=== PATIENT | female | born 1960 | race Caucasian/White ===

== ENCOUNTER → 2023-09-27 14:35 | Outpatient (REF) | payer OTHER, SELFPAY | LOC: WDC 14:35 | PROVIDERS: ATTENDING PHYSICIAN Obstetrics & Gynecology; FAMILY PHYSICIAN Nurse Practitioner Adult Health | DX: Z12.31 Encounter for screening mammogram for malignant neoplasm of breast (principal) | CPT/HCPCS: 77063; 77067 ==

== ENCOUNTER → 2023-10-02 10:45 | Outpatient (REF) | payer OTHER, SELFPAY | LOC: HWRAD 10:45 | PROVIDERS: ATTENDING PHYSICIAN Surgery; FAMILY PHYSICIAN Nurse Practitioner Adult Health | DX: R07.82 Intercostal pain (principal) | CPT/HCPCS: 71250 ==

== ENCOUNTER → 2023-11-09 10:50 | Outpatient (REF) | payer OTHER, SELFPAY ==
[2023-11-09 11:32] LABS: Urine Albumin Negative (Neg - Trace); Urine Bilirubin Negative (Negative); Urine Character Clear (Clear); Urine Color Yellow; Urine Glucose Negative (Negative); Urine Ketone Negative (Negative); Urine Leukocyte Trace (Negative); Urine Nitrite Negative (Negative); Urine Occult Blood Negative (Negative); Urine Specific Gravity 1.005 (<1.030); Urine Urobilinogen Negative (Neg - 1+); Urine pH 6.5 (5.0-9.0)
[2023-11-09 11:37] LABS: % Basophils 0.3 % (0-2); % Eosinophils 0.3 % (0-6); % Immature Granulocytes 0.4 % (0-0.5); % Lymphocytes 6.5 % (20.5-51.1); % Monocytes 1.9 % (1.7-9.3); % Neutrophils 90.6 % (42.2-75.2); Absolute Lymphocytes 0.5 10^3/uL (1.2-3.4); Absolute Monocytes 0.1 10^3/uL (0.1-0.6); Absolute Neutrophils 6.6 10^3/uL (1.4-6.5); Hematocrit 36.9 % (37.0-47.0); Hemoglobin 12.3 g/dL (12.0-16.0); Mean Corp Hgb Conc. 33.3 g/dL (33.0-37.0); Mean Corpuscular Hgb 29.8 pg (27.0-31.0); Mean Corpuscular Volume 89.3 fL (81.0-99.0); Mean Platelet Volume 10.6 fL (7.4-10.4); Nucleated Red Blood Cells % 0 %; Platelet Count 276 10^3/uL (130-400); Red Blood Cell Count 4.13 10^6/uL (4.20-5.40); Red Cell Dist. Width 14.3 % (11.5-14.5); White Blood Cell Count 7.3 10^3/uL (4.8-10.8)
[2023-11-09 11:41] LABS: INR 0.91; PT 12.1 Sec (11.4-14.6)
[2023-11-09 12:12] LABS: Protein/creatinine Ratio 0.3; Urine Protein 9 mg/dl
[2023-11-09 12:14] LABS: Urine Amorphous Seen; Urine Red Blood Cell 0-2 /HPF (0-2); Urine Squamous Cell 0-2 /LPF (Few)
[2023-11-09 12:31] LABS: ALT (SGPT) 28 U/L (0-35); AST (SGOT) 39 U/L (14-36); Albumin 4.1 g/dl (3.5-5.0); Alkaline Phosphatase 138 U/L (38-126); Blood Urea Nitrogen 14 mg/dl (7-17); Calcium 9.7 mg/dl (8.4-10.2); Carbon Dioxide 25 mmol/L (22-30); Chloride 98 mmol/L (98-107); Glucose 92 mg/dl (70-99); Potassium 4.6 mmol/L (3.5-5.1); Sodium 132 mmol/L (135-145); Total Bilirubin 0.5 mg/dl (0.2-1.3); Total Protein 7.3 g/dl (6.3-8.2); eGFR > 60.00
[2023-11-09 12:33] LABS: C-Reactive Protein < 5.00 mg/L (0.0-10.00)
[2023-11-09 12:38] LABS: Complement C3 56 mg/dl (88-165)
[2023-11-12 02:32] LABS: ds-DNA Ab, IgG Reflex To Titer >300 IU (0-24)
== END ==
LOC: REG 10:50
PROVIDERS: ATTENDING PHYSICIAN Registered Nurse; FAMILY PHYSICIAN Nurse Practitioner Adult Health; OTHER PHYSICIAN Internal Medicine Rheumatology
DX: R04.0 Epistaxis (principal); D64.9 Anemia, unspecified; D72.819 Decreased white blood cell count, unspecified; E55.9 Vitamin D deficiency, unspecified; M19.049 Primary osteoarthritis, unspecified hand; M19.071 Primary osteoarthritis, right ankle and foot; M32.9 Systemic lupus erythematosus, unspecified; M51.37 Other intervertebral disc degeneration, lumbosacral region; M76.61 Achilles tendinitis, right leg; M85.80 Other specified disorders of bone density and structure, unspecified site; Z79.899 Other long term (current) drug therapy
CPT/HCPCS: 36415; 80053; 81003; 81015; 82570; 84156; 85025; 85610; 86140; 86160; 86225

== ENCOUNTER → 2023-11-25 09:02 | Outpatient (REF) | payer OTHER, SELFPAY | LOC: RCS 09:02 | PROVIDERS: ATTENDING PHYSICIAN Registered Nurse; REFERRING PHYSICIAN Internal Medicine Rheumatology | DX: I34.0 Nonrheumatic mitral (valve) insufficiency (principal) | CPT/HCPCS: 93306 ==

== ENCOUNTER → 2024-01-09 14:14 | Outpatient (REF) | payer OTHER, SELFPAY | LOC: RAD 14:14 | PROVIDERS: ATTENDING PHYSICIAN Student in an Organized Health Care Education/Training Program; FAMILY PHYSICIAN Nurse Practitioner Adult Health | DX: M79.671 Pain in right foot (principal) | CPT/HCPCS: 73630 ==

== ENCOUNTER → 2024-02-06 13:06 | Outpatient (REF) | payer MEDICARE, OTHER, SELFPAY ==
[2024-02-07 15:47] LABS: tTG IgA Antibody 7.5 EU/ml (0-19); tTG IgG Antibody 9.9 EU/ml (0-19)
[2024-02-07 23:30] LABS: IgA 338 mg/dl (70-400)
[2024-02-09 01:59] LABS: Endomysial IgA Antibody Titer <1:10 (<1:10)
== END ==
LOC: REG 13:06
PROVIDERS: ATTENDING PHYSICIAN Nurse Practitioner Adult Health
DX: R79.0 Abnormal level of blood mineral (principal)
CPT/HCPCS: 36415; 82784; 83516; 86231

== ENCOUNTER → 2024-02-15 11:12 | Outpatient (REF) | payer MEDICARE, OTHER, SELFPAY ==
[2024-02-15 13:28] LABS: % Basophils 0.3 % (0-2); % Eosinophils 0.3 % (0-6); % Immature Granulocytes 0.5 % (0-0.5); % Monocytes 2.6 % (1.7-9.3); % Neutrophils 85.3 % (42.2-75.2); Absolute Lymphocytes 0.7 10^3/uL (1.2-3.4); Absolute Monocytes 0.2 10^3/uL (0.1-0.6); Absolute Neutrophils 5.6 10^3/uL (1.4-6.5); Hematocrit 36.6 % (37.0-47.0); Hemoglobin 12.7 g/dL (12.0-16.0); Mean Corp Hgb Conc. 34.7 g/dL (33.0-37.0); Mean Corpuscular Hgb 30.4 pg (27.0-31.0); Mean Corpuscular Volume 87.6 fL (81.0-99.0); Mean Platelet Volume 11.4 fL (7.4-10.4); Nucleated Red Blood Cells % 0 %; Platelet Count 151 10^3/uL (130-400); Red Blood Cell Count 4.18 10^6/uL (4.20-5.40); Red Cell Dist. Width 14.3 % (11.5-14.5); White Blood Cell Count 6.5 10^3/uL (4.8-10.8)
[2024-02-15 14:21] LABS: Iron 70 ug/dl (37-170)
[2024-02-15 14:31] LABS: Percent Saturation 22 % (20-50); Total Iron Binding Capacity 307 ug/dl (265-497)
[2024-02-15 14:38] LABS: Vitamin D, 25-OH*** 49.8 ng/mL (30-80)
[2024-02-15 14:57] LABS: Ferritin 4.7 ng/ml (11.1-264.0)
[2024-02-15 15:28] LABS: Folate 10.1 ng/ml (2.76-20); Vitamin B12 812 pg/ml (239-931)
== END ==
LOC: REG 11:12
PROVIDERS: ATTENDING PHYSICIAN Nurse Practitioner Family; FAMILY PHYSICIAN Nurse Practitioner Adult Health
DX: D50.9 Iron deficiency anemia, unspecified (principal); R53.83 Other fatigue; R79.9 Abnormal finding of blood chemistry, unspecified; M32.10 Systemic lupus erythematosus, organ or system involvement unspecified; K21.9 Gastro-esophageal reflux disease without esophagitis; M21.611 Bunion of right foot; D52.9 Folate deficiency anemia, unspecified
CPT/HCPCS: 36415; 82306; 82607; 82728; 82746; 83540; 83550; 85025

== ENCOUNTER → 2024-03-04 09:38 | Outpatient (REF) | payer MEDICARE, OTHER, SELFPAY | LOC: RAD 09:38 | PROVIDERS: ATTENDING PHYSICIAN Nurse Practitioner Adult Health; FAMILY PHYSICIAN Nurse Practitioner Adult Health | DX: J06.9 Acute upper respiratory infection, unspecified (principal) | CPT/HCPCS: 71046 ==

== ENCOUNTER → 2024-04-16 11:26 | Outpatient (REF) | payer MEDICARE, OTHER, SELFPAY ==
[2024-04-16 13:10] LABS: % Basophils 0.3 % (0-2); % Eosinophils 0.6 % (0-6); % Immature Granulocytes 0.4 % (0-0.5); % Monocytes 3.7 % (1.7-9.3); Absolute Lymphocytes 0.5 10^3/uL (1.2-3.4); Absolute Monocytes 0.3 10^3/uL (0.1-0.6); Absolute Neutrophils 5.9 10^3/uL (1.4-6.5); Hematocrit 36.8 % (37.0-47.0); Hemoglobin 12.4 g/dL (12.0-16.0); Mean Corp Hgb Conc. 33.7 g/dL (33.0-37.0); Mean Corpuscular Hgb 30.2 pg (27.0-31.0); Mean Corpuscular Volume 89.5 fL (81.0-99.0); Nucleated Red Blood Cells % 0 %; Red Blood Cell Count 4.11 10^6/uL (4.20-5.40); Red Cell Dist. Width 14.9 % (11.5-14.5); White Blood Cell Count 6.8 10^3/uL (4.8-10.8)
[2024-04-16 13:37] LABS: Iron 115 ug/dl (37-170)
[2024-04-16 13:46] LABS: Percent Saturation 48 % (20-50); Total Iron Binding Capacity 239 ug/dl (265-497)
[2024-04-16 14:03] LABS: Ferritin 29.6 ng/ml (11.1-264.0)
== END ==
LOC: REG 11:26
PROVIDERS: ATTENDING PHYSICIAN Internal Medicine Hematology & Oncology; FAMILY PHYSICIAN Nurse Practitioner Adult Health; REFERRING PHYSICIAN Internal Medicine Rheumatology
DX: D50.9 Iron deficiency anemia, unspecified (principal); R53.83 Other fatigue; R79.9 Abnormal finding of blood chemistry, unspecified; M32.10 Systemic lupus erythematosus, organ or system involvement unspecified; K21.9 Gastro-esophageal reflux disease without esophagitis; M19.90 Unspecified osteoarthritis, unspecified site; Z51.81 Encounter for therapeutic drug level monitoring; Z90.5 Acquired absence of kidney
CPT/HCPCS: 36415; 82728; 83540; 83550; 85025

== ENCOUNTER → 2024-05-01 12:50 | Outpatient (REF) | payer MEDICARE, OTHER, SELFPAY | LOC: RAD 12:50 | PROVIDERS: ATTENDING PHYSICIAN Internal Medicine Rheumatology; FAMILY PHYSICIAN Nurse Practitioner Adult Health | DX: M81.0 Age-related osteoporosis without current pathological fracture (principal) | CPT/HCPCS: 77080 ==

== ENCOUNTER → 2024-05-21 13:57 | Outpatient (REF) | payer MEDICARE, OTHER, SELFPAY | LOC: RAD 13:57 | PROVIDERS: ATTENDING PHYSICIAN Nurse Practitioner Adult Health; REFERRING PHYSICIAN Internal Medicine Critical Care Medicine | DX: R93.89 Abnormal findings on diagnostic imaging of other specified body structures (principal); J92.9 Pleural plaque without asbestos; I65.21 Occlusion and stenosis of right carotid artery | CPT/HCPCS: 71046; 93880 ==

== ENCOUNTER → 2024-05-29 08:14 | Outpatient (REF) | payer MEDICARE, OTHER, SELFPAY ==
[2024-05-29 08:55] LABS: % Basophils 0.7 % (0-2); % Eosinophils 2.9 % (0-6); % Immature Granulocytes 0.5 % (0-0.5); % Lymphocytes 22.5 % (20.5-51.1); % Monocytes 9.4 % (1.7-9.3); Absolute Eosinophils 0.1 10^3/uL (0-0.7); Absolute Lymphocytes 0.9 10^3/uL (1.2-3.4); Absolute Monocytes 0.4 10^3/uL (0.1-0.6); Absolute Neutrophils 2.7 10^3/uL (1.4-6.5); Hematocrit 37.9 % (37.0-47.0); Hemoglobin 12.3 g/dL (12.0-16.0); Mean Corp Hgb Conc. 32.5 g/dL (33.0-37.0); Mean Corpuscular Hgb 30.9 pg (27.0-31.0); Mean Corpuscular Volume 95.2 fL (81.0-99.0); Mean Platelet Volume 10.9 fL (7.4-10.4); Nucleated Red Blood Cells % 0 %; Platelet Count 230 10^3/uL (130-400); Red Blood Cell Count 3.98 10^6/uL (4.20-5.40); Red Cell Dist. Width 14.2 % (11.5-14.5); White Blood Cell Count 4.1 10^3/uL (4.8-10.8)
[2024-05-29 09:48] LABS: Blood Urea Nitrogen 12 mg/dl (7-17); Calcium 9.5 mg/dl (8.4-10.2); Carbon Dioxide 28 mmol/L (22-30); Chloride 99 mmol/L (98-107); Glucose 84 mg/dl (70-99); Potassium 4.4 mmol/L (3.5-5.1); Sodium 135 mmol/L (135-145); eGFR > 60.00
== END ==
LOC: SDSPAT 08:14
PROVIDERS: ATTENDING PHYSICIAN Student in an Organized Health Care Education/Training Program; FAMILY PHYSICIAN Nurse Practitioner Adult Health; REFERRING PHYSICIAN Internal Medicine Rheumatology
DX: Z01.818 Encounter for other preprocedural examination (principal)
CPT/HCPCS: 36415; 80048; 85025; 93005

== ENCOUNTER 2024-06-24 06:26 | Day surgery (SDC) | payer MEDICARE, OTHER, SELFPAY ==
[2024-05-29 13:07] VITALS: BMI 21.3
[2024-06-24] VITALS (7 sets, daily range): BP systolic 132–165; BP diastolic 79–89; BMI 21.3
[2024-06-24] MEDS: NORMOSOL-R/PLASMALYTE-A 1000 IV (09:03)
[2024-06-24] MEDS: VANCOCIN 200 IV (09:04)
[2024-06-24] MEDS: ZOFRAN 4 MG IV (14:53)
[2024-06-24] MEDS: SUBLIMAZE 25 MCG IV (14:57)
== END 2024-06-24 16:33 | disposition home or self-care (01) ==
LOC: SDS 06:26
PROVIDERS: ATTENDING PHYSICIAN Student in an Organized Health Care Education/Training Program; FAMILY PHYSICIAN Nurse Practitioner Adult Health
DX: T84.84XA Pain due to internal orthopedic prosthetic devices, implants and grafts, initial encounter (principal); Y83.1 Surgical operation with implant of artificial internal device as the cause of abnormal reaction of the patient, or of later complication, without mention of misadventure at the time of the procedure; Y92.9 Unspecified place or not applicable; Y79.2 Prosthetic and other implants, materials and accessory orthopedic devices associated with adverse incidents; M20.11 Hallux valgus (acquired), right foot; M21.611 Bunion of right foot; M20.41 Other hammer toe(s) (acquired), right foot
CPT/HCPCS: 28750; 20680; 28740; 28285; L5999; 73630; 76000

== ENCOUNTER → 2024-09-04 11:28 | Outpatient (REF) | payer MEDICARE, OTHER, SELFPAY | LOC: RAD 11:28 | PROVIDERS: ATTENDING PHYSICIAN Nurse Practitioner Adult Health; FAMILY PHYSICIAN Nurse Practitioner Adult Health | DX: M54.42 Lumbago with sciatica, left side (principal); W19.XXXA Unspecified fall, initial encounter | CPT/HCPCS: 72110 ==

== ENCOUNTER → 2024-09-30 12:56 | Outpatient (REF) | payer MEDICARE, OTHER, SELFPAY | LOC: WDC 12:56 | PROVIDERS: ATTENDING PHYSICIAN Nurse Practitioner Adult Health | DX: Z12.31 Encounter for screening mammogram for malignant neoplasm of breast (principal) | CPT/HCPCS: 77063; 77067 ==

== ENCOUNTER 2024-11-12 13:22 | Emergency (ER) | payer MEDICARE, OTHER, SELFPAY ==
[2024-11-12 13:24] VITALS: BP 173/102
[2024-11-12 14:22] LABS: APTT 27.3 Sec (23.4-35.0); PT 12.5 Sec (11.4-14.6)
[2024-11-12 14:25] LABS: % Basophils 0.4 % (0-2); % Eosinophils 0.4 % (0-6); % Immature Granulocytes 0.2 % (0-0.5); % Lymphocytes 10.8 % (20.5-51.1); % Monocytes 4.1 % (1.7-9.3); % Neutrophils 84.1 % (42.2-75.2); Absolute Lymphocytes 0.5 10^3/uL (1.2-3.4); Absolute Monocytes 0.2 10^3/uL (0.1-0.6); Absolute Neutrophils 3.9 10^3/uL (1.4-6.5); Hematocrit 41.5 % (37.0-47.0); Hemoglobin 14.4 g/dL (12.0-16.0); Mean Corp Hgb Conc. 34.7 g/dL (33.0-37.0); Mean Corpuscular Hgb 30.9 pg (27.0-31.0); Mean Corpuscular Volume 89.1 fL (81.0-99.0); Nucleated Red Blood Cells % 0 %; Red Blood Cell Count 4.66 10^6/uL (4.20-5.40); Red Cell Dist. Width 13.4 % (11.5-14.5); White Blood Cell Count 4.7 10^3/uL (4.8-10.8)
[2024-11-12 14:34] LABS: ALT (SGPT) 60 U/L (0-35); AST (SGOT) 49 U/L (14-36); Albumin 4.9 g/dl (3.5-5.0); Alkaline Phosphatase 141 U/L (38-126); Blood Urea Nitrogen 11 mg/dl (7-17); Calcium 9.7 mg/dl (8.4-10.2); Carbon Dioxide 24 mmol/L (22-30); Chloride 98 mmol/L (98-107); Glucose 114 mg/dl (70-99); Potassium 4.7 mmol/L (3.5-5.1); Sodium 133 mmol/L (135-145); Total Bilirubin 0.8 mg/dl (0.2-1.3); eGFR > 60.00
[2024-11-12 14:38] LABS: Troponin I 0.076 ng/ml
[2024-11-12 14:50] VITALS: BP 172/83
[2024-11-12 15:00] VITALS: BP 146/78
[2024-11-12 16:30] VITALS: BP 156/86; BMI 22.4
--- NOTE | 2024-11-12 17:29 | ED.GENMED ---
History of Present Illness
General
Chief Complaint: Change in Mental Status
Source: patient and spouse
Exam Limitations: none
Time Seen by Provider: 11/12/24 15:43
Nursing documentation reviewed up to this point in time: agreed with
History of Present Illness
History of Present Illness:
Patient with history of hypertension and lupus, presents to ED secondary to sudden onset of confusion, after returning from a walk outside this afternoon. Per spouse, when patient returned from walking outside for approximate 15 minutes, patient
kept repeating same questions to him, i.e. (where did I go? What do her to use? What year are we in?) These questions were repeatedly asked over the next 2 hours. No other deficit noted, i.e. speech/ambulatory dysfunction/weakness/slurred
speech/vomiting. Symptoms resolved spontaneously and has not returned. At the time of evaluation ED, patient is at her baseline, and has no complaints. Denies previous history of similar symptoms. Denies recent illness. Denies recent change in
medications or diet.
If applicable-neuro sx onset
Onset of symptoms known: Yes
Date of onset of symptoms: 11/12/24
Past History
Past History
ED Past Medical History: HTN and Other (Lupus on Prednisone daily)
Social History
Tobacco: Non-smoker
Personal:
Living: with family
Review of Systems
Review of Systems
Allergies reviewed?: Yes
Constitutional: Reports no symptoms
Respiratory: Reports no symptoms
Cardiac: Reports no symptoms
ABD/GI: Reports no symptoms
Musculoskeletal: Reports no symptoms
Skin: Reports no symptoms
Neurological: Reports no symptoms; Denies dizzy, headache or weakness
Phy Exam
Physical Exam
Physical Exam:
Physical Exam
General: no apparent distress, not acutely ill. afebrile
Head: nc/at. eomi
Neck: supple. no meningeal signs.
Heart: s1/s2 regular rate and rhythm
Lungs: no acute respiratory distress. clear bilaterally
Abdomen: normal bowel sounds. not tender.
Neuro: alert and oriented x 3. no focal neurological deficits. normal speech. normal gait.
Skin: no rash
Psychiatric: well kept. interactive and cooperative
Extremities: no edema. no calf tenderness.
Course
Orders/Labs/Results
Orders:
Orders
11/12/24 13:40
CT Head W/o Iv Contrast Urgent
Comment:
Reason For Exam: confusion
11/12/24 13:42
Complete Blood Count/With Diff Urgent
Comprehensive Metabolic Panel Urgent
PTT Urgent
Prothrombin Time Urgent
Troponin I Urgent
Abnormal Lab Results
11/12/24
13:42
WBC 4.7 L 10^3/uL
(4.8-10.8)
Absolute Lymphs (auto) 0.5 L 10^3/uL
(1.2-3.4)
Neutrophils % 84.1 H %
(42.2-75.2)
Lymphocytes % 10.8 L %
(20.5-51.1)
Sodium 133 L mmol/L
(135-145)
Creatinine 0.4 L mg/dL
(0.6-1.0)
Glucose 114 H mg/dl
(70-99)
AST 49 H U/L
(14-36)
ALT 60 H U/L
(0-35)
Alkaline Phosphatase 141 H U/L
(38-126)
Troponin I 0.076 H* ng/ml
11/12/24 13:42
11/12/24 13:42
Vital Signs
Initial and Last Documented VS:
Initial Vital Signs
Temp Pulse Resp BP Pulse Ox
97.5 F 85 20 173/102 97
11/12/24 13:24 11/12/24 13:24 11/12/24 13:24 11/12/24 13:24 11/12/24 13:24
Last Documented Vital Signs
Temp Pulse Resp BP Pulse Ox
97.5 F 71 17 156/86 100
11/12/24 13:24 11/12/24 16:45 11/12/24 16:45 11/12/24 16:30 11/12/24 17:15
MDM/Problems Addressed
MDM/Problems Addressed:
CT head report reviewed and discussed with patient and spouse. In addition, discussed patient's presenting symptoms with on-call neurology, . Feels the patient's presenting symptoms are consistent with transient global amnesia. Recommends
offering admission to hospital for further workup. However, if patient wants to go home, advised starting patient on 81 mg aspirin daily, along with PCP follow-up, to consider outpatient MRI brain.
Discussed neurology recommendations with patient and spouse. At this time, patient prefers to go home and will follow-up with her primary care physician, to consider MRI brain as an outpatient. Advised return to ED with worsening symptoms.
*Critical Care Note
Total Time (30-74mins, 75-104mins- exclusive of procedures): Not Applicable
ED Attending Note
-
Portions of this chart may have been created with voice recognition software.� Occasional wrong word or��sound alike� substitutions may have occurred due to the inherent limitations of voice recognition software.
Discharge Plan
Departure
Patient Disposition: Home (Routine Discharge)
Date of Disposition: 11/12/24
Time of Disposition: 17:30
Patient with high blood pressure during this ER visit?: Yes
Condition: Good
Discharge Problem:
TGA (transient global amnesia)
Instructions: Altered Mental Status (DC)
Prescriptions:
No Action
amlodipine 10 MG tablet
10 mg PO DAILY
esomeprazole magnesium 40 MG capsule,delayed release(DR/EC)
40 mg PO Q48H
piroxicam 20 MG capsule
20 mg PO Q48H
methylprednisolone 4 mg tablet
4 mg PO DAILY
cyanocobalamin (vitamin B-12) [Vitamin B-12] 1,000 mcg Tablet
1,000 mcg PO DAILY
cholecalciferol (vitamin D3) [Vitamin D3] 25 mcg (1,000 unit) Tablet
25 mcg PO DAILY
PreserVision AREDS-2 250-90-40-1 mg Capsule
1 tab PO BID
hydroxychloroquine 200 mg Tablet
200 mg PO DAILY
cyclosporine [Restasis] 0.05 % Dropperette
1 drp BOTH EYES Q12H
losartan 50 mg Tablet
50 mg PO DAILY
acetaminophen [Tylenol] 325 mg Tablet
650 mg PO Q6HPRN PRN (Reason: mild pain)
calcium carbonate [Calcium 500] 500 mg calcium (1,250 mg) Tablet
500 mg PO DAILY
alendronate [Fosamax] 70 mg Tablet
70 mg PO MO
Referrals:
Stephania Zapien CRNP [Family Provider, Internal Medicine]
Activity Restrictions/Additional Instructions:
As discussed, please follow-up with your primary care physician for reevaluation, including potential MRI brain as an outpatient. Please consider return to ED with worsening symptoms.
Interventions
Interventions:
*Risk Screen - Suicide Last Done: 11/12/24 15:30
*General Assessment Last Done: 11/12/24 16:29
*Neglect/Abuse Screening Last Done: 11/12/24 16:29
*ED- Fall Risk Assessment Last Done: 11/12/24 18:23
*ED COVID-19 Vaccine History Last Done: 11/12/24 16:29
*Nursing Disposition Last Done: 11/12/24 18:15
ED- Pulmonary Assessment Last Done: 11/12/24 15:30
ED-Psychological Assessment Last Done: 11/12/24 15:30
ED- Neurological Assessment Last Done: 11/12/24 16:00
ED- Cardiac Assessment Last Done: 11/12/24 15:30
ED Swallowing Screen Last Done: 11/12/24 15:30
Discharge Date and Time
Discharge Date/Time: 11/12/24 18:15
Print Language: YI
== END 2024-11-12 18:15 | disposition home or self-care (01) ==
LOC: EMR 13:22
PROVIDERS: EMERGENCY PHYSICIAN Emergency Medicine; FAMILY PHYSICIAN Nurse Practitioner Adult Health
DX: G45.4 Transient global amnesia (principal); I10 Essential (primary) hypertension; M32.9 Systemic lupus erythematosus, unspecified; G43.809 Other migraine, not intractable, without status migrainosus; K21.9 Gastro-esophageal reflux disease without esophagitis; M19.90 Unspecified osteoarthritis, unspecified site; G62.9 Polyneuropathy, unspecified; Z88.1 Allergy status to other antibiotic agents; Z88.0 Allergy status to penicillin; Z88.2 Allergy status to sulfonamides; Z88.8 Allergy status to other drugs, medicaments and biological substances
CPT/HCPCS: 99284; 70450; 80053; 84484; 85025; 85610; 85730

== ENCOUNTER → 2024-11-28 11:26 | Outpatient (REF) | payer MEDICARE, OTHER, SELFPAY | LOC: RAD 11:26 | PROVIDERS: ATTENDING PHYSICIAN Obstetrics & Gynecology; FAMILY PHYSICIAN Nurse Practitioner Adult Health | DX: D25.9 Leiomyoma of uterus, unspecified (principal); J92.9 Pleural plaque without asbestos | CPT/HCPCS: 71046; 76856 ==

== ENCOUNTER → 2025-04-02 09:16 | Outpatient (REF) | payer MEDICARE, OTHER, SELFPAY | LOC: RCS 09:16 | PROVIDERS: ATTENDING PHYSICIAN Internal Medicine; FAMILY PHYSICIAN Nurse Practitioner Adult Health | DX: I10 Essential (primary) hypertension (principal); R74.8 Abnormal levels of other serum enzymes; R07.89 Other chest pain; R06.02 Shortness of breath; R60.9 Edema, unspecified | CPT/HCPCS: 93017; 93350 ==

== ENCOUNTER → 2025-04-04 10:11 | Outpatient (REF) | payer MEDICARE, OTHER, SELFPAY | LOC: HWRCS 10:11 | PROVIDERS: ATTENDING PHYSICIAN Internal Medicine; FAMILY PHYSICIAN Nurse Practitioner Adult Health | DX: I10 Essential (primary) hypertension (principal); R74.8 Abnormal levels of other serum enzymes; R07.89 Other chest pain; R06.02 Shortness of breath; R60.9 Edema, unspecified | CPT/HCPCS: 93306 ==

== ENCOUNTER → 2025-04-14 16:31 | Outpatient (REF) | payer MEDICARE, OTHER, SELFPAY | LOC: RAD 16:31 | PROVIDERS: ATTENDING PHYSICIAN Nurse Practitioner Adult Health | DX: M79.671 Pain in right foot (principal) | CPT/HCPCS: 73630 ==

== ENCOUNTER → 2025-05-01 09:48 | Outpatient (REF) | payer MEDICARE, OTHER, SELFPAY ==
[2025-05-01 11:32] LABS: Hematocrit 38.9 % (37.0-47.0); Hemoglobin 12.9 g/dL (12.0-16.0); Mean Corp Hgb Conc. 33.2 g/dL (33.0-37.0); Mean Corpuscular Volume 91.7 fL (81.0-99.0); Nucleated Red Blood Cells % 0 %; Red Cell Dist. Width 13.3 % (11.5-14.5)
[2025-05-01 11:57] LABS: Urine Character Clear (Clear)
[2025-05-01 12:38] LABS: C-Reactive Protein 8.50 mg/L (0.0-10.00)
[2025-05-01 12:56] LABS: Vitamin D, 25-OH*** 49.0 ng/mL (30-80)
[2025-05-01 13:06] LABS: ALT (SGPT) 42 U/L (0-35); AST (SGOT) 39 U/L (14-36); Albumin 4.1 g/dl (3.5-5.0); Alkaline Phosphatase 100 U/L (38-126); Blood Urea Nitrogen 15 mg/dl (7-17); Calcium 9.5 mg/dl (8.4-10.2); Carbon Dioxide 29 mmol/L (22-30); Chloride 98 mmol/L (98-107); Glucose 87 mg/dl (70-99); Potassium 4.3 mmol/L (3.5-5.1); Sodium 131 mmol/L (135-145); Total Protein 7.3 g/dl (6.3-8.2); eGFR > 60.00
[2025-05-04 02:59] LABS: ds-DNA Ab, IgG Reflex To Titer >300 IU (0-24)
== END ==
LOC: REG 09:48
PROVIDERS: ATTENDING PHYSICIAN Internal Medicine Rheumatology; FAMILY PHYSICIAN Nurse Practitioner Adult Health; REFERRING PHYSICIAN Student in an Organized Health Care Education/Training Program
DX: D50.9 Iron deficiency anemia, unspecified (principal); E55.9 Vitamin D deficiency, unspecified; M19.049 Primary osteoarthritis, unspecified hand; M19.071 Primary osteoarthritis, right ankle and foot; M32.9 Systemic lupus erythematosus, unspecified; M81.0 Age-related osteoporosis without current pathological fracture; S32.010A Wedge compression fracture of first lumbar vertebra, initial encounter for closed fracture; Z79.899 Other long term (current) drug therapy
CPT/HCPCS: 80053; 81003; 82306; 82570; 84156; 85025; 86140; 86160; 86225; 86256

== ENCOUNTER 2025-05-19 06:20 | Day surgery (SDC) | payer MEDICARE, OTHER, SELFPAY ==
[2025-05-01 13:09] VITALS: BMI 20.1
[2025-05-19 13:35] VITALS: BMI 20.1
[2025-05-19 13:36] VITALS: BP 157/87
[2025-05-19] MEDS: VANCOCIN 200 IV (13:44)
[2025-05-19] MEDS: NORMOSOL-R/PLASMALYTE-A 1000 IV (13:44)
[2025-05-19] MEDS: TYLENOL 1000 MG PO (13:54)
[2025-05-19] MEDS: MOBIC 15 MG PO (13:54)
[2025-05-19 19:15] VITALS: BP 125/86; BP 157/87
[2025-05-19] MEDS: DILAUDID 0.5 MG IV ×2 (19:23→19:41)
[2025-05-19 19:30] VITALS: BP 139/88
[2025-05-19 19:45] VITALS: BP 136/81
[2025-05-19 20:00] VITALS: BP 132/85
[2025-05-19 20:15] VITALS: BP 187/80
== END 2025-05-19 20:49 | disposition home or self-care (01) ==
LOC: SDS 06:20
PROVIDERS: ATTENDING PHYSICIAN Student in an Organized Health Care Education/Training Program; FAMILY PHYSICIAN Nurse Practitioner Adult Health
DX: M20.12 Hallux valgus (acquired), left foot (principal); M19.072 Primary osteoarthritis, left ankle and foot; M20.42 Other hammer toe(s) (acquired), left foot
CPT/HCPCS: 28297; 28285 ×3; 28232